=== PATIENT | male | born 1980 | race Caucasian/White ===

== ENCOUNTER 2016-07-27 22:18 | Emergency (ER) | payer MEDICAID ==
--- NOTE | 2016-07-27 22:25 | EDPHY ---
HPI/HX/ROS/PE/MDM Narrative: CHIEF COMPLAINT: M1 Hold. HPI: The patient is a 36-year-old male with a history of bipolar disorder and depression who presents via EMS on M1 Hold. Per his mother he has been noncompliant with his psychiatric medications over the past few months. He now laughs and yells randomly. She is seeking out further psychiatric evaluation for him. He denies SI or HI. He has no medical complaints at this time. REVIEW OF SYSTEMS: Aside from elements discussed in the HPI, a comprehensive 10-point review of systems was reviewed and is negative. PMH: Bipolar, depression. SOCIAL HISTORY: Lives with mother. PHYSICAL EXAM: General: Patient is alert, in no acute distress. ENT: Eyes are normal to inspection. ENT inspection normal. Neck: Normal inspection. Full range of motion. Respiratory: No respiratory distress. Breath sounds normal bilaterally. Cardiovascular: Regular rate and rhythm. Strong peripheral pulses. Abdomen: The abdomen is nontender to palpation. There are no peritoneal signs. There are normal bowel sounds. Back: Normal to inspection. No tenderness to palpation. Skin: Normal color. No rash. Warm and dry. Extremities: Normal appearance. Full range of motion. Neuro: Oriented x3. Normal motor function. Normal sensory function. Portions of this note were transcribed by an ED scribe. I personally performed the history, physical exam, and medical decision making; and confirm the accuracy of the information in the transcribed note. (Samuel Viramontes) ED Course: Patient medically cleared. He is awaiting psychiatric evaluation. 2300: Patient signed out to Dr. Gongora at shift change. He is still awaiting evaluation. (Samuel Viramontes) 5am- The patient has been stable throughout the course of my shift. He was seen by the mental health worker who has evaluated him and does not think he meets criteria for admission. The case was discussed with the [facility] psychiatrist Dr Donovan. The hold has been lifted and the patient will be discharged home. He has follow up within a week with his mental health provider. (Lucita Gongora) - Data Points Laboratory Results: Laboratory Results 07/27/16 22:31 07/27/16 22:31 07/27/16 07/27/16 07/27/16 22:35 22:31 22:31 WBC RBC Hgb Hct MCV MCH MCHC RDW Plt Count MPV Neut % (Auto) Lymph % (Auto) Glascock % (Auto) Eos % (Auto) Baso % (Auto) Nucleat RBC Rel Count Absolute Neuts (auto) Absolute Lymphs (auto) Absolute Monos (auto) Absolute Eos (auto) Absolute Basos (auto) Absolute Nucleated RBC Immature Gran % Immature Gran # Sodium 143 mEq/L mEq/L (134-144) Potassium 4.2 mEq/L mEq/L (3.5-5.2) Chloride 108 mEq/L mEq/L (97-110) Carbon Dioxide 25 mEq/l mEq/l (22-31) Anion Gap 10 mEq/L mEq/L (8-16) BUN 16 mg/dL mg/dL (7-23) Creatinine 0.9 mg/dL mg/dL (0.7-1.3) Estimated GFR > 60 Glucose 118 mg/dL H mg/dL (70-100) Calcium 10.0 mg/dL mg/dL (8.5-10.4) Urine Opiates Screen NEGATIVE (NEGATIVE) Urine Barbiturates NEGATIVE (NEGATIVE) Ur Phencyclidine Scrn NEGATIVE (NEGATIVE) Ur Amphetamine Screen NEGATIVE (NEGATIVE) U Benzodiazepines Scrn NEGATIVE (NEGATIVE) Urine Cocaine Screen NEGATIVE (NEGATIVE) U Marijuana (THC) Screen NON-NEGATIVE H (NEGATIVE) Ethyl Alcohol < 10 mg/dL mg/dL (0-10) 07/27/16 22:31 WBC 11.02 10^3/uL H 10^3/uL (3.80-9.50) RBC 5.10 10^6/uL 10^6/uL (4.40-6.38) Hgb 16.0 g/dL g/dL (13.7-17.5) Hct 44.8 % % (40.0-51.0) MCV 87.8 fL fL (81.5-99.8) MCH 31.4 pg pg (27.9-34.1) MCHC 35.7 g/dL g/dL (32.4-36.7) RDW 11.9 % % (11.5-15.2) Plt Count 291 10^3/uL 10^3/uL (150-400) MPV 10.0 fL fL (8.7-11.7) Neut % (Auto) 61.0 % % (39.3-74.2) Lymph % (Auto) 28.7 % % (15.0-45.0) Glascock % (Auto) 7.7 % % (4.5-13.0) Eos % (Auto) 1.9 % % (0.6-7.6) Baso % (Auto) 0.5 % % (0.3-1.7) Nucleat RBC Rel Count 0.0 % % (0.0-0.2) Absolute Neuts (auto) 6.72 10^3/uL H 10^3/uL (1.70-6.50) Absolute Lymphs (auto) 3.16 10^3/uL H 10^3/uL (1.00-3.00) Absolute Monos (auto) 0.85 10^3/uL H 10^3/uL (0.30-0.80) Absolute Eos (auto) 0.21 10^3/uL 10^3/uL (0.03-0.40) Absolute Basos (auto) 0.06 10^3/uL 10^3/uL (0.02-0.10) Absolute Nucleated RBC 0.00 10^3/uL 10^3/uL (0-0.01) Immature Gran % 0.2 % % (0.0-1.1) Immature Gran # 0.02 10^3/uL 10^3/uL (0.00-0.10) Sodium Potassium Chloride Carbon Dioxide Anion Gap BUN Creatinine Estimated GFR Glucose Calcium Urine Opiates Screen Urine Barbiturates Ur Phencyclidine Scrn Ur Amphetamine Screen U Benzodiazepines Scrn Urine Cocaine Screen U Marijuana (THC) Screen Ethyl Alcohol General Time Seen by Provider: 07/27/16 22:20 Initial Vital Signs: Initial Vital Signs Temperature (C) 37 C 07/27/16 22:27 Heart Rate 92 07/27/16 22:27 Respiratory Rate 17 07/27/16 22:27 Blood Pressure 141/105 H 07/27/16 22:27 O2 Sat (%) 97 07/27/16 22:27 O2 Delivery Mode Room Air Allergies/Adverse Reactions: No Known Allergies Allergy (Verified 01/30/16 13:37) Home Medications: Medication Instructions Recorded ARIPiprazole [Abilify 10 mg (*)] 10 mg PO DAILY #30 tab 02/08/16 Aripiprazole [Abilify Maintena] 400 mg IM Q28D #1 [email or web address] 02/08/16 Zolpidem Tartrate [Ambien 10 mg] 10 mg PO HS #30 tablet 02/08/16 traZODone [traZODONE 100MG (*)] 100 mg PO HS PRN #30 tab 02/08/16 INVEGA 07/27/16 Departure - Departure Disposition: Home, Routine, Self-Care Clinical Impression: Altered mental status Qualifiers: Altered mental status type: unspecified Qualified Code(s): R41.82 - Altered mental status, unspecified Condition: Good Instructions: Bipolar Disorder (ED) Referrals: [facility] [Outside] - As per Instructions Report Scribed for: Samuel Viramontes Report Scribed by: Cedric Keita Date of Report: 07/27/16 Time of Report: 22:25
[2016-07-27 22:29] VITALS: TEMP 98.6
[2016-07-27 22:42] LABS: % IMMATURE GRANULYOCYTES 0.2 % (0.0-1.1); ABSOLUTE IMMATURE GRANULOCYTES 0.02 10^3/uL (0.00-0.10); ADD DIFF? NO; ADD MORPH? NO; ADD SCAN? NO; ATYPICAL LYMPHOCYTE FLAG 10 (0-99); FRAGMENT RBC FLAG 0 (0-99); HEMATOCRIT 44.8 % (40.0-51.0); LEFT SHIFT FLG 0 (0-99); LIPEMIA HEMOLYSIS FLAG 90 (0-99); MEAN CELL HEMOGLOBIN 31.4 pg (27.9-34.1); MEAN CELL HEMOGLOBIN CONCENTR. 35.7 g/dL (32.4-36.7); MEAN CELL VOLUME 87.8 fL (81.5-99.8); PLATELET CLUMPS FLAG 10 (0-99); PLATELET COUNT 291 10^3/uL (150-400); RED CELL DISTRIBUTION WIDTH 11.9 % (11.5-15.2)
[2016-07-27 22:54] LABS: ETHANOL SERUM < 10 mg/dL (0-10)
[2016-07-27 22:55] LABS: ANION GAP 10 mEq/L (8-16); CARBON DIOXIDE 25 mEq/l (22-31); CHLORIDE 108 mEq/L (97-110); CREATININE 0.9 mg/dL (0.7-1.3); GLOMERULAR FILTRATION RATE > 60; GLUCOSE 118 mg/dL (70-100); POTASSIUM 4.2 mEq/L (3.5-5.2); SODIUM 143 mEq/L (134-144)
[2016-07-28 05:10] VITALS: BP 127/87; PULSE 87; RESP 16; O2SAT 96
== END 2016-07-28 05:10 | disposition home or self-care (01) ==
LOC: EDUNIT#
DX: R41.82 Altered mental status, unspecified (principal)
CPT/HCPCS: 80305; G0480

== ENCOUNTER 2017-05-28 13:49 | Emergency (ER) | payer MEDICAID ==
[2017-05-28 14:00] VITALS: RESP 18
[2017-05-28] MEDS ORDERED: NS 1,000 ML IV ONE (14:35)
[2017-05-28] MEDS ORDERED: DEXAMETHASONE 4 MG/ML VIAL IVP ONE (14:35)
[2017-05-28] MEDS ORDERED: KETOROLAC 15 MG/1 ML SDV IVP ONE (14:35)
[2017-05-28] MEDS ORDERED: LIDOCAINE 2% VISCOUS 15 ML UDCUP PO ONE (14:36)
--- NOTE | 2017-05-28 14:39 | EDPHY ---
H & P Stated Complaint: seen yesterday at pcp/strep neg/uvula enlarged Time Seen by Provider: 05/28/17 14:36 HPI/ROS: HPI: This is a 36-year-old male presents with Chief Complaint: seen yesterday at pcp/strep neg Location: Throat Quality: Sore Duration: 3-5 days Signs and Symptoms: Timing: Severity: Context: Patient reports that he was seen at [facility] yesterday, rapid strep was negative, but given a shot of IM Bicillin. Reports that he had low- grade fever, sore throat, white exudate, swollen glands for the last 2-3 days. He reports that his uvula is very elongated and causing him to gag frequently. He is having difficulty swallowing his own phlegm. Denies any neck stiffness/ nausea/vomiting. Modifying Factors: See above Comment: ROS: see HPI Constitutional: No fever, no chills, no weight loss Eyes: No blurred vision Respiratory: No shortness of breath, no cough Cardiovascular: No chest pain Gastrointestinal: No nausea, no vomiting, no diarrhea Genitourinary: No dysuria Extremities: No myalgias Neurologic: No weakness, no numbness Skin: No rashes Hematologic: No bruising, no bleeding MEDICAL/SURGICAL/SOCIAL HISTORY: Medical/Surgical history: Psych/PARANOID SCHIZOPHRENIA; hx L tibia fx; appendix removal; hydrocele; w/d seizures Social history: Unemployed. CONSTITUTIONAL: awake and alert, no obvious distress HEENT: Atraumatic and normocephalic, PERRL, EOMI. Tympanic membranes clear. Oropharynx clear, tonsils 1+ minimal erythema; uvula is elongated but midline; white exudate and moist pink mucosa. Airway patent. Mild spotty anterior cervical lymphadenopathy. No meningismus. Cardiovascular: Normal S1/S2, regular rate, regular rhythm, without murmur rub or gallop. PULMONARY/CHEST: Symmetrical and nontender. Clear to auscultation bilaterally. Good air movement. No accessory muscle usage. ABDOMEN: Soft, nondistended, nontender, no rebound, no guarding, no peritoneal signs, no masses or organomegaly. No CVAT. EXTREMITIES: 2/2 pulses, strength 5/5, no deformities, no clubbing, no cyanosis or edema. NEUROLOGICAL: no focal neuro deficits. GCS 15. SKIN: Warm and dry, no erythema. no rash. Good capillary refill. Source: Patient Exam Limitations: No limitations - Personal History Current Tetanus/Diphtheria Vaccine: Yes - Medical/Surgical History Hx Asthma: No Hx Chronic Respiratory Disease: No Hx Diabetes: No Hx Cardiac Disease: No Hx Renal Disease: No Hx Cirrhosis: No Hx Alcoholism: No Hx HIV/AIDS: No Hx Splenectomy or Spleen Trauma: No Other PMH: Psych/PARANOID SCHIZOPHRENIA; hx L tibia fx; appendix removal; hydrocele; w/d seizures - Social History Smoking Status: Current every day smoker Constitutional: Initial Vital Signs Temperature (C) 37 C 05/28/17 13:57 Heart Rate 94 05/28/17 13:57 Respiratory Rate 18 05/28/17 13:57 Blood Pressure 128/82 H 05/28/17 13:57 O2 Sat (%) 96 05/28/17 13:57 O2 Delivery Mode Room Air Allergies/Adverse Reactions: No Known Allergies Allergy (Verified 05/28/17 13:55) Home Medications: Medication Instructions Recorded Abx Inj 05/28/17 Lidocaine 2% Viscous 15 ml MM Q6 PRN #120 ml 05/28/17 Steroid 05/28/17 Medical Decision Making ED Course/Re-evaluation: Patient given 1 L normal saline, IV Decadron, IV Toradol, and p.o. viscous lidocaine Afebrile no systemic signs. No signs of airway compromise/facial cellulitis/tonsillar abscess/Madhu's angina Reassessed patient reports moderate relief of discomfort. Speech clear. Passed p.o. trial prior to discharge This patient was seen under the supervision of my secondary supervising physician. I evaluated care for this patient independently. Differential Diagnosis: Differential diagnosis includes but is not limited to viral pharyngitis, tonsillitis. - Data Points Medications Given: Discontinued Medications Dexamethasone (Decadron Injection) 8 mg IVP EDNOW ONE Stop: 05/28/17 14:36 Last Admin: 05/28/17 14:52 Dose: 8 mg Sodium Chloride (Ns) 1,000 mls @ 0 mls/hr IV EDNOW ONE; Wide Open PRN Reason: Protocol Stop: 05/28/17 14:36 Last Admin: 05/28/17 14:52 Dose: 1,000 mls Ketorolac Tromethamine (Toradol) 15 mg IVP EDNOW ONE Stop: 05/28/17 14:36 Last Admin: 05/28/17 14:52 Dose: 15 mg Lidocaine (Lidocaine 2% Viscous) 15 ml PO EDNOW ONE Stop: 05/28/17 14:37 Last Admin: 05/28/17 14:51 Dose: 15 ml Departure - Departure Disposition: Home, Routine, Self-Care Clinical Impression: Uvulitis Pharyngitis Qualifiers: Pharyngitis/tonsillitis etiology: unspecified etiology Qualified Code(s): J02.9 - Acute pharyngitis, unspecified Condition: Good Instructions: Pharyngitis (ED), Uvulitis (ED) Additional Instructions: Consume a minimum of 8-10 glasses of water or electrolyte fluid replacement drinks that include Gatorade, Powerade, Pedialyte. Eat a bland diet for the next 48 hours and then slowly advance as tolerated. Use viscous lidocaine every 6 hr; swish and swallow; as needed for sore throat. Referrals: Nilsa Stewart MD [Primary Care Provider] - As per Instructions Prescriptions: Lidocaine 2% Viscous 15 ml MM Q6 PRN #120 ml PRN Reason: Sore Throat
[2017-05-28 14:54] VITALS: BP 130/91; PULSE 89; TEMP 98.1; O2SAT 94
== END 2017-05-28 15:53 | disposition home or self-care (01) ==
DX: K12.2 Cellulitis and abscess of mouth (principal); F17.200 Nicotine dependence, unspecified, uncomplicated; E86.9 Volume depletion, unspecified
CPT/HCPCS: 96374; J1100; J1885